=== PATIENT | female | born 1955 | race Caucasian/White ===

== ENCOUNTER 2018-05-12 09:08 | Outpatient (CLI) | payer OTHER | END 2018-05-12 09:23 | disposition home or self-care (01) | LOC: SONOGRAMA 09:08 | DX: E04.8 Other specified nontoxic goiter (principal); E04.1 Nontoxic single thyroid nodule; E03.8 Other specified hypothyroidism ==

== ENCOUNTER 2020-03-30 10:35 | Outpatient (CLI) | payer OTHER | END 2020-03-30 10:37 | disposition home or self-care (01) | LOC: SONOGRAMA 10:35 | PROVIDERS: ATTEND Internal Medicine Sports Medicine | DX: E03.8 Other specified hypothyroidism (principal); E04.1 Nontoxic single thyroid nodule; E04.8 Other specified nontoxic goiter ==